=== PATIENT | male | born 1955 | race Caucasian/White ===

== ENCOUNTER → 2018-01-09 | Outpatient (CLI) | payer OTHER ==
[~2018-01-09] MED LIST: FLUT9.9S NAS; GLUCOSAMINE PO; MULT-516 PO; NAPR-685 PO; OMEG1CAP39 PO; OMEP-110 PO; SIMV20TA3 PO; UBID200C35 PO
== END | disposition home or self-care (01) ==
LOC: STAR 13:49
PROVIDERS: ATTEND Otolaryngology
DX: Z01.818 Encounter for other preprocedural examination (principal); J34.2 Deviated nasal septum; J34.89 Other specified disorders of nose and nasal sinuses; R13.14 Dysphagia, pharyngoesophageal phase; Z88.5 Allergy status to narcotic agent; Z87.891 Personal history of nicotine dependence
CPT/HCPCS: 93005

== ENCOUNTER 2018-01-16 06:18 | Day surgery (SDC) | payer OTHER ==
[~2018-01-16] VITALS: Ht 182.9 cm; Wt 115.0 kg
[2018-01-16] MEDS ORDERED: FLUORESCEIN SODIUM 500 MG/5 ML ONE (06:58)
[2018-01-16] MEDS ORDERED: EPINEPHRINE TOPICAL SOLN 1 MG/ML, 30ML ONE (06:58)
[2018-01-16] MEDS ORDERED: OXYMETAZOLINE NASAL SPRAY 0.05%, 15ML ONE (06:58)
[2018-01-16] MEDS ORDERED: LIDOCAINE 1%-EPI 1:100K, 30ML ONE (06:58)
[2018-01-16] MEDS ORDERED: BACITRACIN OINT 500U/GM, 15 GM ONE (06:58)
[2018-01-16] MEDS ORDERED: LACTATED RINGERS 1,000 ML IV SCH (07:05)
[2018-01-16] MEDS ORDERED: MIDAZOLAM 1 MG/ML, 2ML ONE (08:11)
[2018-01-16] MEDS ORDERED: FENTANYL PF 250 MCG/5ML ONE (08:11)
[2018-01-16] MEDS ORDERED: PROPOFOL 10 MG/ML, 20ML ONE (08:12)
[2018-01-16] MEDS ORDERED: CEFAZOLIN 1,000 MG ONE ×2 (08:13)
[2018-01-16] MEDS ORDERED: ROCURONIUM 10MG/ML,5ML ONE (08:13)
[2018-01-16] MEDS ORDERED: WATER-INJECTION,STERILE 10 ML IV ONE (08:13)
[2018-01-16] MEDS ORDERED: NEOSTIGMINE 1 MG/ML, 10ML ONE (08:22)
[2018-01-16] MEDS ORDERED: GLYCOPYRROLATE 0.4 MG/2 ML, 2ML ONE (08:22)
[2018-01-16] MEDS ORDERED: hydrALAzine 20 MG/ML, 1ML IV PRN (08:30)
[2018-01-16] MEDS ORDERED: HYDROmorphone 1 MG/ML, 1ML IV PRN (08:30)
[2018-01-16] MEDS ORDERED: OXYcodone 5 MG/5 ML ORAL.SOL UDC PO PRN (08:30)
[2018-01-16] MEDS ORDERED: PROMETHAZINE 25 MG/ML, 1ML IM PRN ×2 (08:30)
[2018-01-16] MEDS ORDERED: MEPERIDINE/PF 25MG/0.5ML IVPush PRN (08:30)
[2018-01-16] MEDS ORDERED: ONDANSETRON ODT 8 MG PO PRN (08:30)
[2018-01-16] MEDS ORDERED: LABETALOL 5MG/ML, 20ML IV PRN (08:30)
[2018-01-16] MEDS ORDERED: PROMETHAZINE 25 MG/ML, 1ML IV PRN (08:30)
[2018-01-16] MEDS ORDERED: ACETAMINOPHEN 325 MG TABLET PO PRN (08:30)
[2018-01-16] MEDS ORDERED: FENTANYL PF 100 MCG/2ML IV PRN (08:30)
[2018-01-16] MEDS ORDERED: ONDANSETRON 2MG/ML, 2ML IV PRN (08:30)
[2018-01-16] MEDS ORDERED: AMPICILLIN/SULBACTAM 3 GM in SODIUM CHLORIDE 0.9% 100 ML IV ONE (08:32)
[2018-01-16] MEDS ORDERED: DEXAMETHASONE 4 MG/ML, 1ML ONE (08:45)
[2018-01-16] MEDS ORDERED: ACETAMINOPHEN 650 MG/20.3 ML UDC ONE (10:42)
== END 2018-01-16 14:15 | disposition home or self-care (01) ==
LOC: OUT 06:18
PROVIDERS: ATTEND Otolaryngology
DX: J34.2 Deviated nasal septum (principal); J34.3 Hypertrophy of nasal turbinates; Z98.890 Other specified postprocedural states
CPT/HCPCS: 30140; 30520; J0295; J1100; J2250; J2704; J2710; J3010; J3490; J7120; J0690

== ENCOUNTER 2019-11-08 15:58 | Emergency (ER) | payer OTHER ==
[~2019-11-08] VITALS: Ht 182.9 cm; Wt 113.9 kg
[~2019-11-08 15:58] MED LIST changes: +SIMV20TA19 PO; -SIMV20TA3 PO
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
[2019-11-08] MEDS ORDERED: FEXO180T15 PO (16:53)
--- NOTE | 2019-11-08 17:03 | NUR ---
Pt to CT
--- NOTE | 2019-11-08 17:16 | NUR ---
Back from [place]
[2019-11-08 17:32] VITALS: BP 126/93
== END 2019-11-08 17:51 | disposition home or self-care (01) ==
LOC: ED 17:30
DX: S02.2XXA Fracture of nasal bones, initial encounter for closed fracture (principal); S50.01XA Contusion of right elbow, initial encounter; S80.02XA Contusion of left knee, initial encounter; S80.01XA Contusion of right knee, initial encounter; W01.0XXA Fall on same level from slipping, tripping and stumbling without subsequent striking against object, initial encounter; Y93.89 Activity, other specified; Y92.098 Other place in other non-institutional residence as the place of occurrence of the external cause; Y99.8 Other external cause status
CPT/HCPCS: 70450; 70486; 99285